=== PATIENT | male | born 1945 | race Caucasian/White ===

== ENCOUNTER 2017-01-03 08:03 | Day surgery (SDC) | payer BC ==
[2017-01-03] VITALS (8 sets, daily range): BP systolic 93–111; BP diastolic 54–71; PULSE 58–74; TEMP 97.7
[~2017-01-03] VITALS: Ht 182.9 cm; Wt 82.7 kg
[~2017-01-03 08:03] MED LIST: ALPHAGAN OPHTH D5 ML OU; ASPIRIN E.C. 8181 MG PO; CLARITIN 1010 MG/TAB PO; COSOPT 2%-0.5%10 ML OU; COUMADIN 1010 MG/TAB PO; COUMADIN 5MG5 MG/TAB PO; COUMADIN 77.5 MG/TAB PO; DESYREL 100MG100 MG PO; DESYREL 50MG50 MG PO; DIGITEK0.125 MG PO; FLEXERIL 1010 MG/TAB PO; GLUCOPHAGE850 MG/TAB PO; HYTRIN 2MG CAPSU2 MG PO; IMIQUIMOD5% TP; LOPRESSOR 550 MG/TAB PO; LOPRESSOR100 MG PO; NEURONTIN300 MG/CAP PO; PERIACTIN 4MG TA4 MG PO; REQUIP 1MG T1 MG/TAB PO; REQUIP0.25 MG PO; TOPROL XL 25MG25 MG PO; VERAMYST27.5 MCG/A NS; WELLBUTRIN 100100 MG PO; WELLBUTRIN SR100 M1 PO; XALATAN EYE DROPS OU; XARELTO20 MG PO; ZOCOR 10MG10 MG PO; ZOCOR 20MG20 MG PO
[2017-01-03] MEDS ORDERED: PERIACTIN 4MG TA4 MG PO (08:22)
[2017-01-03] MEDS ORDERED: GLUCOPHAGE500 MG/TAB PO (08:24)
[2017-01-03] MEDS ORDERED: LOPRESSOR 550 MG/TAB PO (08:26)
[2017-01-03] MEDS ORDERED: REQUIP 1MG T1 MG/TAB PO (08:27)
[2017-01-03 09:27] LABS: HEMOGLOBIN 12.1 g/dl (13.5-18.0); MEAN CELL VOLUME 89 fl (80.0-100.0); MEAN CORPUSCULAR HEMOGLOBIN 29 pg (27.0-31.0); MEAN CORPUSCULAR HGB CONC 33 g/dl (33.0-37.0); MEAN PLATELET VOLUME 10.2 fl (7.4-10.4); PLATELET COUNT 176 K/mm3 (130-400); RED BLOOD COUNT 4.17 M/mm3 (4.20-5.60); REDCELL DISTRIBUTION WIDTH-CV 13.2 % (11.5-14.5)
[2017-01-03 09:33] LABS: INR 2.8 (0.8-3.0)
[2017-01-03 09:40] LABS: CREATININE, serum 0.84 mg/dL (0.66-1.25); POTASSIUM 4.4 mmol/L (3.4-5.0)
[2017-01-03] MEDS ORDERED: PACERONE200 MG PO (10:52)
[2017-01-03] MEDS ORDERED: PACERONE400 MG PO (10:52)
== END 2017-01-03 13:52 | disposition home or self-care (01) ==
LOC: EUO 08:03 → COL.RAD 08:15 → EUO 13:52
PROVIDERS: Internal Medicine Cardiovascular Disease
DX: I48.1 Persistent atrial fibrillation (principal); E78.5 Hyperlipidemia, unspecified; Z85.810 Personal history of malignant neoplasm of tongue; Z92.3 Personal history of irradiation; Z92.21 Personal history of antineoplastic chemotherapy; Z79.01 Long term (current) use of anticoagulants; Z79.899 Other long term (current) drug therapy
CPT/HCPCS: J2250; J2704

== ENCOUNTER 2022-01-07 16:52 | Inpatient (IN) | payer MEDICARE ==
[2022-01-07] VITALS (331 sets, daily range): BP systolic 131; BP diastolic 69; PULSE 71; TEMP 98.2; O2SAT 88–100
[~2022-01-07] VITALS: Ht 175.3 cm; Wt 95.3 kg
[~2022-01-07 16:52] MED LIST changes: +GLUCOPHAGE500 MG/TAB PO; +PACERONE200 MG PO; +PACERONE400 MG PO
[2022-01-07 19:14] LABS: ARTERIAL BLD GAS O2 SATURATION 88.3 % (92-100); ARTERIAL BLD GAS TCO2 CT 23.6; ARTERIAL BLOOD GAS BASE EXCESS -1.8 (-2-2); ARTERIAL BLOOD GAS HCO3 22.4 meq/L (22-26); ARTERIAL BLOOD GAS PCO2 36.9 mmHg (35-45); ARTERIAL BLOOD GAS PO2 52.2 mmHg (80-100)
[2022-01-07] MEDS ORDERED: CORDARONE200 MG/TAB PO (19:52)
[2022-01-07] MEDS ORDERED: ELIQUIS 5MG PO (19:54)
[2022-01-07] MEDS ORDERED: LIPITOR20 MG PO (19:54)
[2022-01-07] MEDS ORDERED: ALPHAGAN OPHTH D5 ML OU (19:55)
[2022-01-07] MEDS ORDERED: WELLBUTRIN XL150 MG PO (19:56)
[2022-01-07] MEDS ORDERED: COSOPT 2%-0.5%10 ML OU (19:57)
[2022-01-07] MEDS ORDERED: XALATAN EYE DROPS OU (19:57)
[2022-01-07] MEDS ORDERED: CLARITIN 1010 MG/TAB PO (19:58)
[2022-01-07] MEDS ORDERED: ZOLOFT 100MG100 MG PO (19:59)
[2022-01-07] MEDS ORDERED: ROBAXIN 75750 MG/TAB PO (20:00)
[2022-01-07] MEDS ORDERED: TRIAD WOUND CAR1 GEL TOP (20:37)
[2022-01-07] MEDS ORDERED: MUCINEX 60600 MG/TA1 PO (20:41)
--- NOTE | 2022-01-07 23:55 | NUR ---
POLYGRAPH OPERATOR AND CAYETANO BELLO BOTH TRIED TO GET ANOTHER IV ACCESS AFTER PT PULLED OUT LAST ONE, WITH ONE STILL IN CURRENTLY. EACH TIRE FABRIC IMPREGNATING RANGE TENDER ATTEMPTED TO TRY AND GET NEXT SET OF LABS ORDERED, BUT UNSUCCESSFUL. POLYGRAPH OPERATOR CAYETANO FREEMAN MENTIONED THAT ER PROVIDER DR MITCHELL CAN PLACE CENTRAL LINES OR DO ULTRASOUND PERIPHERAL ATTEMPTS IF WE NEED. SPOKE WITH SHELBY CHAVEZ ABOUT THE SITUATION AND UNSUCCESSFUL TO GET NEXT LAB SET AT THIS TIME. SHE STATES THAT ONCE DR MITCHELL IS AVAILABLE IF HE CAN TRY FOR AN ULTRASOUND PERIPHERAL FIRST AND IF UNSUCCESSFUL THEN WE WILL CONSIDER PLACING A CENTRAL LINE.
[2022-01-08] VITALS (1237 sets, daily range): BP systolic 100–112; BP diastolic 43–66; PULSE 60–84; TEMP 98–99.2; O2SAT 84–100
[2022-01-08 03:35] LABS: HEMATOCRIT 40.1 % (42.0-52.0); HEMOGLOBIN 13.1 g/dl (13.5-18.0); MEAN CELL VOLUME 87 fl (80.0-100.0); MEAN CORPUSCULAR HEMOGLOBIN 29 pg (27-31); MEAN CORPUSCULAR HGB CONC 33 g/dl (33.0-37.0); MEAN PLATELET VOLUME 10.5 fl (7.4-10.4); PLATELET COUNT 214 K/mm3 (130-400); RED BLOOD COUNT 4.59 M/mm3 (4.20-5.60); REDCELL DISTRIBUTION WIDTH-CV 14.5 % (11.5-14.5)
[2022-01-08 03:51] LABS: ALBUMIN 3.1 gm/dL (3.4-4.8); CREATININE, serum 0.89 mg/dL (0.72-1.25); TOTAL PROTEIN 6.3 gm/dL (6.2-8.1)
[2022-01-08 03:54] LABS: CALCIUM 7.8 mg/dL (8.4-10.2)
[2022-01-08 04:59] LABS: BAND 6 % (0-10); EOSINOPHIL 2 % (0-4); LYMPHOCYTE 4 % (20.0-51.0); NEUTROPHILS 84 % (42.0-75.2)
[2022-01-08 05:00] LABS: PLATELET ESTIMATE NORMAL (NORMAL)
[2022-01-08 05:02] LABS: HYPOCHROMIA 2+
--- NOTE | 2022-01-08 07:33 | NUR ---
RECEIVED BEDSIDE SHIFT REPORT FROM CAYETANO CHAPIN. PATIENT SLEEPING IN BED ON HOME CPAP. VSS. CALL LIGHT WITHIN REACH. IV SITES STILL INTACT.
--- NOTE | 2022-01-08 09:58 | NUR ---
DR. BLAIR AT BEDSIDE. DISCUSSED PATIENT'S CURRENT PROBLEMS AND REASONS FOR ADMISSION.
--- NOTE | 2022-01-08 10:02 | NUR ---
CALLED CONSULT FOR DR. HENRY AND LEFT MESSAGE. AWAITING CALL BACK.
--- NOTE | 2022-01-08 10:09 | NUR ---
DR. TRONCOSO AT BEDSIDE. DISCUSSED PLAN OF CARE.
--- NOTE | 2022-01-08 20:00 | NUR ---
PM ASSESSMENT COMPLETE. PT LAYING IN BED RESTING, EASILY AROUSABLE. REPORTS FEELING FINE, NO PAIN. REPORTS NO NEEDS. BREATHING STEADY AND MAINTAINING O2 SAT OVER 90% ON ROOM AIR. PLAN TO USE CPAP FOR SLEEP. VSS, WILL CONTINUE TO MONITOR.
[2022-01-09] VITALS (564 sets, daily range): BP systolic 112–142; BP diastolic 64–92; PULSE 76–96; TEMP 97.4–99; O2SAT 86–100
--- NOTE | 2022-01-09 09:27 | NUR ---
The patient is in droplet isolation. YADIEL attempted to contact the patient's , Elsie (ph#[phone]), to complete intake. YADIEL left her a voicemail. YADIEL then contacted the patient to discuss discharge plan. The patient lives in [place] with his , Elsie. He reports independence with ADLs and has a cane. The patient's PCP is Dr. Hermes Foreman and [facility]. The patient does not have a DPOA-HC. The patient plans on returning home with his upon discharge. YADIEL to ask for PT/OT to be ordered. SW to continue to follow as needed. *Discharge plan: home with *
--- NOTE | 2022-01-09 17:58 | NUR ---
Patient slept most of the day today, getting up to eat and occasionally visiting with his . Patient had a complaint of pain on the lateral side of his right upper chest; pain was intermittent and nothing seemed to have exacerbated it. Patient stated that the pain was gone by the time he reported it to this nurse; instructed patient to relay any new reports of this or any new pain as soon as possible.
[2022-01-10] VITALS (556 sets, daily range): BP systolic 102–126; BP diastolic 67–92; PULSE 77–84; TEMP 97.5–98.1; O2SAT 74–100
[2022-01-10] MEDS ORDERED: KEPPRA 500MG500 MG PO (13:59)
[2022-01-10] MEDS ORDERED: ASPIRIN 81M81 MG/TA2 PO (14:00)
[2022-01-10] MEDS ORDERED: LIPITOR20 MG PO (14:03)
--- NOTE | 2022-01-10 14:28 | NUR ---
The patient is to discharge back home with his today, 01/10. SW contacted the patient and read the IM form outloud to him over the phone. The patient verbalized understanding and gave SW approval to sign the form on his behalf. No additional needs at this time.
[2022-01-10] MEDS ORDERED: CLEOCIN HCL300 MG PO (14:30)
--- NOTE | 2022-01-10 18:00 | NUR ---
Patient got increasingly irritated throughout the day as he wanted to go home; explained that he could leave as soon as his antibiotic was done and discharge instructions were printed and signed; he was not happy but complied.
== END 2022-01-10 18:30 | disposition home or self-care (01) | DRG 189 ==
LOC: IMCU 16:52 → ICU 18:10
PROVIDERS: Student in an Organized Health Care Education/Training Program; ADMIT Internal Medicine
PROC: 5A09357 Assistance with Respiratory Ventilation, Less than 24 Consecutive Hours, Continuous Positive Airway Pressure (ICD-10-PCS; principal; 2022-01-08)
DX: J96.01 Acute respiratory failure with hypoxia (principal); J18.9 Pneumonia, unspecified organism; I63.9 Cerebral infarction, unspecified; J69.0 Pneumonitis due to inhalation of food and vomit; I50.22 Chronic systolic (congestive) heart failure; J98.11 Atelectasis; G40.409 Other generalized epilepsy and epileptic syndromes, not intractable, without status epilepticus; I48.91 Unspecified atrial fibrillation; I34.0 Nonrheumatic mitral (valve) insufficiency; I95.9 Hypotension, unspecified; B34.2 Coronavirus infection, unspecified; G47.33 Obstructive sleep apnea (adult) (pediatric); T40.711A Poisoning by cannabis, accidental (unintentional), initial encounter; Y92.9 Unspecified place or not applicable; E11.9 Type 2 diabetes mellitus without complications; E87.6 Hypokalemia; F43.10 Post-traumatic stress disorder, unspecified; F32.A Depression, unspecified; H40.9 Unspecified glaucoma; R32 Unspecified urinary incontinence; Z79.01 Long term (current) use of anticoagulants; Z79.84 Long term (current) use of oral hypoglycemic drugs; Z85.810 Personal history of malignant neoplasm of tongue; Z85.9 Personal history of malignant neoplasm, unspecified; Z88.8 Allergy status to other drugs, medicaments and biological substances
CPT/HCPCS: 99223-AI; 99233-AI; 99239; A9575; C9113; J2543